=== PATIENT | female | born 1945 | race Caucasian/White ===

== ENCOUNTER 2017-08-13 22:17 | Inpatient (IN) | payer MEDICARE, OTHER ==
[2017-08-13 23:29] LABS: ADD MAN DIFF? NO
[2017-08-13 23:34] LABS: BASOPHILS % 0.5 % (0.0-2.0); EOSINOPHILS # 0.1 10^3/ul (0.0-0.5); HEMOGLOBIN 11.6 g/dl (12.0-16.0); LYMPHOCYTES # 2.2 10^3/ul (0.8-2.9); LYMPHOCYTES % 37.1 % (15.0-51.0); MEAN CORPUSCULAR HEMOGLOBIN 39.7 pg (29.0-33.0); MEAN CORPUSCULAR HGB CONC 34.1 g/dl (32.0-37.0); MEAN CORPUSCULAR VOLUME 116.4 fl (82.0-101.0); MONOCYTE # 0.6 10^3/ul (0.3-0.9); MONOCYTES % 10.5 % (0.0-11.0); NEUTROPHILS % 50.6 % (39.0-77.0); RED BLOOD COUNT 2.92 10^6/ul (4.20-5.40); RED CELL DISTRIBUTION WIDTH 16.9 % (11.5-14.5)
[2017-08-14 00:06] LABS: PLATELET COUNT 316 10^3/UL (140-415); POSITIVE DIFF @See below
[2017-08-14 00:08] LABS: ALANINE AMINOTRANSFERASE 10 IU/L (13-69); ALBUMIN/GLOBULIN RATIO 1.33; ALKALINE PHOSPHATASE 103 IU/L (42-121); ANION GAP 14 (8-16); ASPARTATE AMINO TRANSFERASE 21 IU/L (15-46); BILIRUBIN,INDIRECT 0.1 mg/dl (0-1.1); BILIRUBIN,TOTAL 0.1 mg/dl (0.2-1.3); BLOOD UREA NITROGEN 19 mg/dl (7-20); CALCIUM 9.6 mg/dl (8.4-10.2); CARBON DIOXIDE 22 mmol/L (21-31); CHLORIDE 108 mmol/L (97-110); CHOL/HDL RATIO 2.3 RATIO; CHOLESTEROL 189 mg/dl (100-200); CREATININE 0.49 mg/dl (0.44-1.00); GLUCOSE 99 mg/dl (70-220); HDL CHOLESTEROL 80 mg/dl (33-92); LDL CHOLESTEROL,CALCULATED 56 mg/dl; SODIUM 139 mmol/L (135-144); TRIGLYCERIDES 267 mg/dl (0-149)
[2017-08-14 00:20] LABS: TROPONIN-I < 0.010 ng/ml (0.000-0.120)
[2017-08-14 00:59] LABS: ADD UMIC NO; UR ASCORBIC ACID NEGATIVE (NEGATIVE); UR BILIRUBIN (Dip) NEGATIVE (NEGATIVE); UR BLOOD (Dip) NEGATIVE (NEGATIVE); UR CLARITY CLEAR (CLEAR); UR COLOR COLORLESS (YELLOW); UR GLUCOSE (Dip) NEGATIVE (NEGATIVE); UR KETONES (Dip) NEGATIVE (NEGATIVE); UR LEUKOCYTE ESTERASE (Dip) NEGATIVE Leu/ul (NEGATIVE); UR NITRITE (Dip) NEGATIVE (NEGATIVE); UR SPECIFIC GRAVITY (Dip) 1.004 (1.003-1.030); UR TOTAL PROTEIN (Dip) NEGATIVE (NEGATIVE); UR UROBILINOGEN (Dip) NEGATIVE (NEGATIVE)
[2017-08-14 01:16] LABS: AMPHETAMINE/METHAMPHETAMINE NEGATIVE (NEGATIVE); BARBITURATES NEGATIVE (NEGATIVE); BENZODIAZEPINES NEGATIVE (NEGATIVE); CANNABINOIDS NEGATIVE (NEGATIVE); COCAINE NEGATIVE (NEGATIVE); OPIATES NEGATIVE (NEGATIVE)
[2017-08-14 01:28] LABS: HEMOGLOBIN A1C 5.4 % (0-5.9)
[2017-08-14 02:06] LABS: INR 0.87; PROTIME 11.9 Sec (11.9-14.9); PT RATIO 0.9
[2017-08-14 02:07] LABS: PARTIAL THROMBOPLASTIN TIME 28.2 Sec (25.0-35.0)
[2017-08-14] MEDS: morphine 4 MG/ML VIAL IV (02:09)
[2017-08-14] MEDS: HYDROmorphONE 0.5 MG/0.5 ML SYG IV (02:09)
[2017-08-14] MEDS ORDERED: NACL 0.9% 3 ML SYG IV (09:30)
[2017-08-14] MEDS ORDERED: ACETAMINOPHEN 325 MG TAB PO (09:30)
[2017-08-14] MEDS ORDERED: ONDANSETRON 4 MG INJ IV (09:30)
[2017-08-14] MEDS ORDERED: MAGNESIUM HYDROXIDE 30ML CUP PO (09:30)
[2017-08-14] MEDS: HYDROCODONE/APAP (5/325) TAB PO ×3 (10:20→22:19)
[2017-08-14] MEDS: PHENOBARBITAL 32.4 MG TAB PO ×2 (10:21→20:51)
[2017-08-14] MEDS ORDERED: PHENOBARBITAL 32.4 MG TAB PO ×3 (10:30→21:00)
[2017-08-14] MEDS: ARTIFICIAL TEARS 15 ML OPH BOTH EYES ×3 (12:20→20:51)
[2017-08-14] MEDS: GABAPENTIN 100 MG CAP PO ×2 (12:20→20:50)
[2017-08-14] MEDS: CLOPIDOGREL 75 MG TAB PO (13:26)
[2017-08-14 18:11] LABS: IRON 84 ug/dl (35-150)
[2017-08-14 18:21] LABS: % IRON SATURATION 19 % SAT (22-52); TOTAL IRON BINDING CAPACITY 433 ug/dl (241-421)
[2017-08-14 18:48] LABS: FERRITIN 50.7 ng/ml (11.1-264.0)
[2017-08-14 19:18] LABS: FOLATE 5.9 ng/ml (2.8-20.0)
[2017-08-14] MEDS: FISH OIL 1,000 MG CAP PO (20:49)
[2017-08-14] MEDS: FAMOTIDINE 20 MG TAB PO (20:50)
[2017-08-14] MEDS: METOPROLOL 25 MG TAB PO (20:51)
[2017-08-14] MEDS ORDERED: ATORVASTATIN 10 MG TAB PO (21:00)
[2017-08-15 07:51] LABS: ADD MAN DIFF? NO
[2017-08-15 07:56] LABS: BASOPHILS % 0.6 % (0.0-2.0); EOSINOPHILS # 0.1 10^3/ul (0.0-0.5); EOSINOPHILS % 1.4 % (0.0-7.0); HEMATOCRIT 35.4 % (37.0-47.0); HEMOGLOBIN 11.9 g/dl (12.0-16.0); LYMPHOCYTES # 1.7 10^3/ul (0.8-2.9); LYMPHOCYTES % 33.9 % (15.0-51.0); MEAN CORPUSCULAR HEMOGLOBIN 39.5 pg (29.0-33.0); MEAN CORPUSCULAR HGB CONC 33.6 g/dl (32.0-37.0); MEAN CORPUSCULAR VOLUME 117.6 fl (82.0-101.0); MEAN PLATELET VOLUME 8.3 fl (7.4-10.4); MONOCYTE # 0.6 10^3/ul (0.3-0.9); MONOCYTES % 12.3 % (0.0-11.0); NEUTROPHIL # 2.6 10^3/ul (1.6-7.5); NEUTROPHILS % 51.2 % (39.0-77.0); PLATELET COUNT 328 10^3/UL (140-415); RED BLOOD COUNT 3.01 10^6/ul (4.20-5.40); RED CELL DISTRIBUTION WIDTH 17.1 % (11.5-14.5)
[2017-08-15 07:56] LABS: WHITE BLOOD COUNT 5.1 10^3/ul (4.8-10.8)
[2017-08-15] MEDS: FISH OIL 1,000 MG CAP PO ×2 (08:04→20:29)
[2017-08-15] MEDS: CLOPIDOGREL 75 MG TAB PO (08:04)
[2017-08-15] MEDS: METOPROLOL 25 MG TAB PO ×2 (08:05→20:31)
[2017-08-15] MEDS: GABAPENTIN 100 MG CAP PO ×3 (08:05→20:30)
[2017-08-15] MEDS: FAMOTIDINE 20 MG TAB PO ×2 (08:05→20:31)
[2017-08-15] MEDS: HYDROCODONE/APAP (5/325) TAB PO ×3 (08:10→20:30)
[2017-08-15] MEDS: ARTIFICIAL TEARS 15 ML OPH BOTH EYES ×4 (08:11→20:29)
[2017-08-15 08:12] LABS: HEMOGLOBIN A1C 5.3 % (0-5.9)
[2017-08-15] MEDS: ENOXAPARIN 40 MG/0.4 ML SYG SC (08:16)
[2017-08-15 08:18] LABS: ALANINE AMINOTRANSFERASE 15 IU/L (13-69); ALBUMIN/GLOBULIN RATIO 1.42; ALKALINE PHOSPHATASE 80 IU/L (42-121); ANION GAP 14 (8-16); ASPARTATE AMINO TRANSFERASE 21 IU/L (15-46); BILIRUBIN,INDIRECT 0.1 mg/dl (0-1.1); BILIRUBIN,TOTAL 0.1 mg/dl (0.2-1.3); BLOOD UREA NITROGEN 24 mg/dl (7-20); CALCIUM 9.6 mg/dl (8.4-10.2); CARBON DIOXIDE 22 mmol/L (21-31); CHLORIDE 108 mmol/L (97-110); CHOL/HDL RATIO 2.5 RATIO; CHOLESTEROL 202 mg/dl (100-200); CREATININE 0.51 mg/dl (0.44-1.00); GLUCOSE 93 mg/dl (70-220); HDL CHOLESTEROL 78 mg/dl (33-92); LDL CHOLESTEROL,CALCULATED 65 mg/dl; PHOSPHORUS 5.2 mg/dl (2.5-4.9); POTASSIUM 4.5 mmol/L (3.5-5.1); SODIUM 139 mmol/L (135-144); TOTAL PROTEIN 6.8 g/dl (6.1-8.1); TRIGLYCERIDES 296 mg/dl (0-149)
[2017-08-15 08:43] LABS: THYROID STIMULATING HORMONE 0.312 MIU/L (0.465-4.680)
[2017-08-15] MEDS ORDERED: ASPIRIN 81 MG TAB PO (09:00)
[2017-08-15] MEDS: PHENOBARBITAL 32.4 MG TAB PO ×2 (09:14→20:30)
[2017-08-15 13:04] LABS: FREE T4 (FREE THYROXINE) 0.59 ng/dl (0.78-2.44)
[2017-08-15 15:32] LABS: ERYTHROCYTE SEDIMENTATION RATE 35 mm/Hr (0-30)
[2017-08-15] MEDS: IOHEXOL 300MG/ML 150 ML BTL (17:24)
[2017-08-15] MEDS: SOD CHLORIDE 0.9% 100 ML (17:24)
[2017-08-15 22:43] LABS: RHEUMATOID FACTOR NEGATIVE (NEGATIVE)
[2017-08-16] MEDS: HYDROCODONE/APAP (5/325) TAB PO ×5 (05:07→23:14)
[2017-08-16] MEDS: GABAPENTIN 100 MG CAP PO ×3 (08:52→20:30)
[2017-08-16] MEDS: FISH OIL 1,000 MG CAP PO ×2 (08:52→20:30)
[2017-08-16] MEDS: METOPROLOL 25 MG TAB PO ×2 (08:53→20:31)
[2017-08-16] MEDS: PHENOBARBITAL 32.4 MG TAB PO ×2 (08:54→21:23)
[2017-08-16] MEDS: FAMOTIDINE 20 MG TAB PO ×2 (08:54→20:31)
[2017-08-16] MEDS: CLOPIDOGREL 75 MG TAB PO (08:54)
[2017-08-16] MEDS: ENOXAPARIN 40 MG/0.4 ML SYG SC (08:58)
[2017-08-16] MEDS: ARTIFICIAL TEARS 15 ML OPH BOTH EYES ×4 (08:59→21:23)
[2017-08-16 11:56] LABS: HSV 2 IGG ANTIBODY 6.13 index
[2017-08-16 14:11] LABS: ANA SCREEN NEGATIVE (NEGATIVE)
[2017-08-17] MEDS: HYDROCODONE/APAP (5/325) TAB PO ×3 (06:05→18:52)
[2017-08-17] MEDS: GABAPENTIN 100 MG CAP PO ×3 (08:33→21:12)
[2017-08-17] MEDS: COLLAGENASE 5 GM (UD JAR) TOP (08:33)
[2017-08-17] MEDS: ARTIFICIAL TEARS 15 ML OPH BOTH EYES ×4 (08:33→21:12)
[2017-08-17] MEDS: CLOPIDOGREL 75 MG TAB PO (08:33)
[2017-08-17] MEDS: FISH OIL 1,000 MG CAP PO ×2 (08:33→21:12)
[2017-08-17] MEDS: FAMOTIDINE 20 MG TAB PO (08:33)
[2017-08-17] MEDS: METOPROLOL 25 MG TAB PO ×2 (08:35→21:12)
[2017-08-17] MEDS: PHENOBARBITAL 32.4 MG TAB PO ×2 (08:38→21:13)
[2017-08-17] MEDS: ENOXAPARIN 40 MG/0.4 ML SYG SC (08:48)
[2017-08-18] MEDS: HYDROCODONE/APAP (5/325) TAB PO ×2 (00:59→08:42)
[2017-08-18] MEDS: GABAPENTIN 100 MG CAP PO ×2 (08:42→12:26)
[2017-08-18] MEDS: FISH OIL 1,000 MG CAP PO (08:42)
[2017-08-18] MEDS: CLOPIDOGREL 75 MG TAB PO (08:42)
[2017-08-18] MEDS: ARTIFICIAL TEARS 15 ML OPH BOTH EYES ×2 (08:43→12:26)
[2017-08-18] MEDS: METOPROLOL 25 MG TAB PO (08:43)
[2017-08-18] MEDS: PHENOBARBITAL 32.4 MG TAB PO (08:44)
[2017-08-18] MEDS: ENOXAPARIN 40 MG/0.4 ML SYG SC (08:51)
[2017-08-18] MEDS: COLLAGENASE 5 GM (UD JAR) TOP (08:51)
== END 2017-08-18 13:15 | disposition home or self-care (01) | DRG 123 ==
LOC: E/R 22:17 → TEL 08-14 02:37
DX: H02.402 Unspecified ptosis of left eyelid (principal); R20.0 Anesthesia of skin; E78.1 Pure hyperglyceridemia; F41.9 Anxiety disorder, unspecified; F17.200 Nicotine dependence, unspecified, uncomplicated; G89.29 Other chronic pain; G40.909 Epilepsy, unspecified, not intractable, without status epilepticus; I10 Essential (primary) hypertension; I73.9 Peripheral vascular disease, unspecified; J44.9 Chronic obstructive pulmonary disease, unspecified; R94.6 Abnormal results of thyroid function studies; Z86.73 Personal history of transient ischemic attack (TIA), and cerebral infarction without residual deficits; Z76.5 Malingerer [conscious simulation]; Z99.3 Dependence on wheelchair; Z89.612 Acquired absence of left leg above knee; Z89.611 Acquired absence of right leg above knee
CPT/HCPCS: 36415; 70450; 70491; 70551; 71045; 71260; 80053; 80061; 80307; 81003; 82607; 82728; 82746; 82962; 83036; 83540; 83735; 84100; 84439; 84443; 84484; 85025; 85610; 85651; 85730; 86038; 86430; 86692; 92526; 92610; 93005; 93306; 93880; 96374; 97162; 97530; 97542; 99285-25; G0378

== ENCOUNTER 2017-09-09 14:15 | Emergency (ER) | payer OTHER, MEDICARE ==
[2017-09-09 18:41] LABS: ADD MAN DIFF? NO
[2017-09-09 18:45] LABS: WHITE BLOOD COUNT 7.7 10^3/ul (4.8-10.8)
[2017-09-09 18:45] LABS: BASOPHILS % 0.4 % (0.0-2.0); EOSINOPHILS # 0.2 10^3/ul (0.0-0.5); EOSINOPHILS % 2.3 % (0.0-7.0); HEMATOCRIT 41.1 % (37.0-47.0); HEMOGLOBIN 14.3 g/dl (12.0-16.0); LYMPHOCYTES # 2.2 10^3/ul (0.8-2.9); LYMPHOCYTES % 28.4 % (15.0-51.0); MEAN CORPUSCULAR HEMOGLOBIN 37.1 pg (29.0-33.0); MEAN CORPUSCULAR HGB CONC 34.8 g/dl (32.0-37.0); MEAN CORPUSCULAR VOLUME 106.8 fl (82.0-101.0); MEAN PLATELET VOLUME 8.6 fl (7.4-10.4); MONOCYTE # 0.8 10^3/ul (0.3-0.9); MONOCYTES % 9.9 % (0.0-11.0); NEUTROPHIL # 4.5 10^3/ul (1.6-7.5); NEUTROPHILS % 58.7 % (39.0-77.0); PLATELET COUNT 309 10^3/UL (140-415); RED BLOOD COUNT 3.85 10^6/ul (4.20-5.40); RED CELL DISTRIBUTION WIDTH 14.9 % (11.5-14.5)
[2017-09-09 19:06] LABS: ALANINE AMINOTRANSFERASE 39 IU/L (13-69); ALBUMIN 4.7 g/dl (3.3-4.9); ALBUMIN/GLOBULIN RATIO 1.46; ALKALINE PHOSPHATASE 130 IU/L (42-121); ANION GAP 16 (8-16); ASPARTATE AMINO TRANSFERASE 40 IU/L (15-46); BILIRUBIN,INDIRECT 0.2 mg/dl (0-1.1); BILIRUBIN,TOTAL 0.2 mg/dl (0.2-1.3); BLOOD UREA NITROGEN 6 mg/dl (7-20); CALCIUM 9.4 mg/dl (8.4-10.2); CARBON DIOXIDE 19 mmol/L (21-31); CHLORIDE 106 mmol/L (97-110); CREATININE 0.54 mg/dl (0.44-1.00); GLUCOSE 94 mg/dl (70-220); LIPASE 57 U/L (23-300); POTASSIUM 3.3 mmol/L (3.5-5.1); SODIUM 138 mmol/L (135-144); TOTAL PROTEIN 7.9 g/dl (6.1-8.1)
[2017-09-09] MEDS: POTASSIUM CHLORIDE (SR) 20 MEQ TAB PO (20:41)
[2017-09-09] MEDS: LOPERAMIDE 2 MG CAP PO (20:42)
[2017-09-09] MEDS: SOD CHLORIDE 0.9% 1,000 ML IV (20:44)
== END 2017-09-09 23:30 | disposition home or self-care (01) ==
LOC: E/R 23:30
DX: E86.0 Dehydration (principal); E87.6 Hypokalemia; I10 Essential (primary) hypertension; R40.2142 Coma scale, eyes open, spontaneous, at arrival to emergency department; R40.2362 Coma scale, best motor response, obeys commands, at arrival to emergency department; R40.2252 Coma scale, best verbal response, oriented, at arrival to emergency department; Z87.891 Personal history of nicotine dependence
CPT/HCPCS: 36415; 80053; 83690; 85025; 99284-25